=== PATIENT | female | born 1980 | race African-American/Black ===

== ENCOUNTER 2017-01-13 19:08 | Emergency (ER) | payer OTHER ==
--- NOTE | ~2017-01-13 | CT4 ---
[facility] A Service [facility] RADIOLOGY TEXT RESULTS PATIENT: TIFFANY ARIAS LOCATION: SED : 78 UNIT #: [id number] AGE: [address]: Julián Kenney MD SEX: F ORDER DR: [id number] [address] [address] [id number] E MR#: [id number] Acc #: [id number] NAME: TIFFANY ARIAS. : 1980 SEX: F STUDY DATE/TIME: 01/13/2017 20:26 UNIT: SED ROOM: STUDY DESCRIPTION: CT Abd and Pelv Wo Cont Attending Physician: Julián Kenney M.D. Ordering Physician: Julián Kenney M.D. Primary Care Physician: Primary Care Physician No MEDICAL IMAGING REPORT This report is preliminary unless electronic signature is present. EXAM Abdomen and pelvis CT without contrast HISTORY Left-sided renal colic beginning earlier today. COMPARISON 05/12/2011 TECHNIQUE Axial images were obtained without contrast. This CT exam was performed with one or more of the following radiation dose reduction techniques: automatic exposure control, adjustment of mA and/or kV according to patient size, and iterative reconstruction. FINDINGS Liver shows diffuse fatty infiltration. Spleen and pancreas are normal in size. The right kidney is unremarkable. There are 2 nonobstructing left kidney stones, 1 measuring about 1.0 cm in diameter and the other measuring about 1.0 x 1.8 cm. Ureters are nondilated and no ureteral stones or bladder stones are seen. There is no evidence of retroperitoneal adenopathy or ascites and no distended bowel loops are seen. No acute or inflammatory changes are seen elsewhere in the abdomen or pelvis. The appendix is normal. IMPRESSION There are 2 fairly large nonobstructing kidney stones on the left, 1 measuring 1.0 cm and the other measuring 1.0 x 1.8 cm. There is no evidence of ureteral stone or obstruction. No acute or inflammatory changes are seen elsewhere in the abdomen or pelvis. The liver shows mild diffuse fatty infiltration. [facility] A Service of [facility] RADIOLOGY TEXT RESULTS PATIENT: TIFFANY ARIAS [place] [facility] [place] [birth year] [place]IT #: [id number] AGE: [address]: Julián Kenney MD SEX: F ORDER DR: Dictated by... Francisco Javier Bates M.D. THIS IS AN ELECTRONICALLY VERIFIED REPORT Francisco Javier Bates M.D. at 01/15/2017 11:02 AM JANEY/berta TD: 01/14/2017 11:30 JOB #: [id number] MEDICAL IMAGING REPORT Page 1 of 1
[~2017-01-13 19:08] MED LIST: AMITRIPTYLINE H50 MG; CELEXA10 M1; FLEXERIL10 MG; IBUPROFEN800 MG; LEXAPRO20 MG; METFORMIN; METHOTREXATE1 G1; OMEPRAZOLE40 M1; PREDNISONE; TOPAMAX50 MG; TRAMADOL HCL50 M1; ZYRTEC10 M1
[2017-01-13 19:52] LABS: URINE SOURCE CLEAN CATCH
[2017-01-13 19:53] LABS: BASOPHIL# 0.1 X10e3 (0-0.3); BASOPHIL% 0.9 % (0-2.5); EOSINOPHIL# 0.2 X10e3 (0-0.7); HEMATOCRIT 38.8 % (35.0-45.0); HEMOGLOBIN 13.4 gm/dL (12.0-16.0); LYMPHOCYTE% 19.7 % (17.0-45.0); MEAN CELL VOLUME 87.7 FL (83-96); MEAN CORPUSCULAR HEMOGLOBIN 30.3 PG (28-34); MEAN CORPUSCULAR HGB CONC 34.6 g/dL (30-36); MEAN PLATELET VOLUME 8.2 FL (6.5-11.5); MONOCYTE% 6.6 % (3.0-12.0); NEUTROPHIL% 71.8 % (40-75); PLATELET COUNT 297 X10e3 (140-420); RED BLOOD COUNT 4.42 X10e (3.90-5.30); RED CELL DISTRIBUTION WIDTH 14.7 % (11.0-15.5); WHITE BLOOD COUNT 15.3 X10e3 (4.0-10.5)
[2017-01-13 19:55] LABS: DIFF IND NO
[2017-01-13 19:55] LABS: URINE APPEARANCE CLEAR; URINE BILIRUBIN NEG (NEG); URINE BLOOD 3+ (NEG); URINE COLOR YELLOW; URINE GLUCOSE NEG (NORM); URINE KETONE TRACE (NEG); URINE LEUKOCYTE ESTERASE TRACE (NEG); URINE NITRATE NEG (NEG); URINE PROTEIN NEG (NEG)
[2017-01-13 19:59] LABS: MICRO INDICATED? YES
[2017-01-13 20:00] LABS: CULTURE INDICATED? NO; URINE BACTERIA NEG (NEG); URINE CRYSTALS CALCIUM OXALATE /[HPF]; URINE MUCUS PRESENT; URINE SQUAMOUS EPITHELIAL CELL MODERATE /[HPF]; URINE WBC 0-2 /[HPF] (0-5)
[2017-01-13 20:09] LABS: ALBUMIN SERUM 3.8 g/dL (3.5-5.0); ALKALINE PHOSPHATASE 79 U/L (32-92); ALT (SGPT) 19 U/L (10-40); AST (SGOT) 15 U/L (10-42); BILIRUBIN, DIRECT 0.1 mg/dL (0.0-0.2); BILIRUBIN,INDIRECT 0.4 mg/dL (0.0-0.9); BILIRUBIN,TOTAL 0.5 mg/dL (0.2-2.0); BLOOD UREA NITROGEN 11 mg/dL (9-23); BUN/CREATININE RATIO 13.75; CALCIUM SERUM 8.7 mg/dL (8.4-10.2); CARBON DIOXIDE 27 mmol/L (22-31); CHLORIDE 102 mmol/L (100-111); CREATININE SERUM 0.8 mg/dL (0.6-1.4); GLOM FILT RATE Estimated ABOVE60 mL/min (>60); GLUCOSE FASTING 147 mg/dL (70-110); POTASSIUM 3.4 mmol/L (3.5-5.1); PROTEIN TOTAL SERUM 7.5 g/dL (6.0-8.3); SODIUM 134 mmol/L (135-145)
== END 2017-01-13 21:19 | disposition home or self-care (01) ==
LOC: SED 19:08
PROVIDERS: Emergency Medicine
DX: N20.0 Calculus of kidney (principal); G43.909 Migraine, unspecified, not intractable, without status migrainosus; M06.9 Rheumatoid arthritis, unspecified; Z91.040 Latex allergy status; Z88.1 Allergy status to other antibiotic agents
CPT/HCPCS: 36415; 74176; 80048; 80076; 81003; 84703; 85025; 96361; 96374; 96375; 99284; J2270; J2405